=== PATIENT | female | born 1990 | race Caucasian/White ===

== ENCOUNTER 2017-08-14 23:55 | Emergency (ER) | payer OTHER ==
[2017-08-15] MEDS ORDERED: ONDANSETRON 4 MG/2 ML VIAL IVPUSH ONE (00:15)
[2017-08-15] MEDS ORDERED: HYDROmorphone HCL CARPU-JECT 1 MG/1 ML DISP.SYRIN IVPUSH ONE (00:15)
--- NOTE | 2017-08-15 00:16 | PDOC ---
History of Present Illness <Fernando Gutierrez - Last Filed: 08/15/17 00:15> - General History Source: Patient Exam Limitations: No Limitations - History of Present Illness Initial Comments: 08/15/17 00:28 Patient is a 27 year old female with no significant past medical history who presents to the ED with complaints of diffuse abdominal pain that began today while at work. Patient reports pain began early today and thought nothing of it until it became chronic throughout the day. She reports pain initially began as a localized pain on her abdomen and began radiating to her lower back as the day continued. Patient reports abdomen pain is a dull pain that she states is a 6/10 in intensity. Denies chest pain, SOB. Denies fevers, chills. Denies nausea, vomiting. Denies any other symptoms. Allergies Social history: Sister had gallbladder removed (s/p 1 year). Father had gallstones. No smoking. No alcohol. No illicit drugs. Surgical history: None PMD: None <Blu Claros - Last Filed: 08/15/17 00:29> - General Chief Complaint: Pain Stated Complaint: PAIN, ACUTE Time Seen by Provider: 08/15/17 00:14 Past History - Suicide/Smoking/Psychosocial Hx Smoking History: Never smoked Have you smoked in the past 12 months: No Information on smoking cessation initiated: No Hx Alcohol Use: No Drug/Substance Use Hx: No <Fernando Gutierrez - Last Filed: 08/15/17 00:15> <Blu Claros - Last Filed: 08/15/17 00:29> - Past Medical History Allergies/Adverse Reactions: Allergies Allergy/AdvReac Type Severity Reaction Status Date / Time No Known Allergies Allergy Verified 08/15/17 00:11 Review of Systems - Review of Systems Able to Perform ROS?: Yes Comments:: 08/15/17 00:28 GENERAL/CONSTITUTIONAL: No fever or chills. No weakness. HEAD, EYES, EARS, NOSE AND THROAT: No change in vision. No ear pain or discharge. No sore throat. CARDIOVASCULAR: No chest pain or shortness of breath. RESPIRATORY: No cough, wheezing, or hemoptysis. GASTROINTESTINAL: No nausea, vomiting, diarrhea or constipation. GENITOURINARY: No dysuria, frequency, or change in urination. MUSCULOSKELETAL: +Diffuse Abdominal pain. No joint or muscle swelling. No neck or back pain. SKIN: No rash NEUROLOGIC: No headache, vertigo, loss of consciousness, or change in strength/ sensation. ENDOCRINE: No increased thirst. No abnormal weight change. HEMATOLOGIC/LYMPHATIC: No anemia, easy bleeding, or history of blood clots. ALLERGIC/IMMUNOLOGIC: No hives or skin allergy. All Other Systems: Reviewed and Negative <Blu Claros - Last Filed: 08/15/17 00:29> *Physical Exam - Vital Signs Last Vital Signs Temp Pulse Resp BP Pulse Ox 98.7 F 86 14 128/87 100 08/15/17 00:11 08/15/17 00:11 08/15/17 00:11 08/15/17 00:11 08/15/17 00:11 <Fernando Gutierrez - Last Filed: 08/15/17 00:15> - Vital Signs Last Vital Signs Temp Pulse Resp BP Pulse Ox 98.7 F 86 14 128/87 100 08/15/17 00:11 08/15/17 00:11 08/15/17 00:11 08/15/17 00:11 08/15/17 00:11 - Physical Exam Comments: 08/15/17 00:29 GENERAL: Awake, alert, and fully oriented, in no acute distress HEAD: No signs of trauma EYES: PERRLA, EOMI, sclera anicteric, conjunctiva clear ENT: Auricles normal inspection, hearing grossly normal, nares patent, oropharynx clear without exudates. Moist mucosa NECK: Normal ROM, supple, no lymphadenopathy, JVD, or masses LUNGS: Breath sounds equal, clear to auscultation bilaterally. No wheezes, and no crackles HEART: Regular rate and rhythm, normal S1 and S2, no murmurs, rubs or gallops ABDOMEN: +RUQ pain. +RLQ pain. Soft, nontender, normoactive bowel sounds. No guarding, no rebound. No masses EXTREMITIES: Normal range of motion, no edema. No clubbing or cyanosis. No cords, erythema, or tenderness NEUROLOGICAL: Cranial nerves II through XII grossly intact. Normal speech, normal gait SKIN: Warm, Dry, normal turgor, no rashes or lesions noted. <Blu Claros - Last Filed: 08/15/17 00:29> ED Treatment Course - RADIOLOGY Radiology Studies Ordered: Category Date Time Status GALLBLADDER US [US] Stat Ultrasound 08/15/17 00:15 Ordered <Fernando Gutierrez - Last Filed: 08/15/17 00:15> *DC/Admit/Observation/Transfer - Attestations Physician Attestion: 08/15/17 00:15 I, Dr. Fernando Gutierrez, attest that this document has been prepared under my direction and personally reviewed by me in its entirety. I further attest, that it accurately reflects all work, treatment, procedures and medical decision -making performed by me. <Fernando Gutierrez - Last Filed: 08/15/17 00:15> - Attestations Scribe Attestion: 08/15/17 00:29 Documentation prepared by Blu Claros, acting as medical appliance maker for Fernando Gutierrez MD/DO. <Blu Claros - Last Filed: 08/15/17 00:29>
[2017-08-15 00:31] LABS: URINE APPEARANCE CLEAR; URINE BILIRUBIN NEGATIVE (NEGATIVE); URINE BLOOD 1+ (NEGATIVE); URINE COLOR STRAW; URINE GLUCOSE (UA) NEGATIVE (NEGATIVE); URINE KETONE NEGATIVE (NEGATIVE); URINE LEUK ESTERASE NEGATIVE (NEGATIVE); URINE NITRITE NEGATIVE (NEGATIVE); URINE PROTEIN NEGATIVE (NEGATIVE); URINE UROBILINOGEN NEGATIVE mg/dL (0.2-1.0)
[2017-08-15 00:59] VITALS: BP 128/87; PULSE 86; TEMP 98.7; BMI 25.7
[2017-08-15 00:59] LABS: BASOPHIL 0.9 % (0-2.0); EOSINOPHIL 1.2 % (0-4.5); MCHC 34.1 g/dl (32.0-36.0); MEAN CELL VOLUME 90.9 fl (80-96); NEUTROPHILS 56.7 % (42.8-82.8); PLATELET COUNT 271 K/MM3 (134-434); RDW 12.2 % (11.6-15.6); WHITE BLOOD COUNT 11.4 K/mm3 (4.0-10.0)
[2017-08-15] MEDS ORDERED: ONDANSETRON 4 MG/2 ML VIAL ONE (00:59)
[2017-08-15] MEDS ORDERED: HYDROmorphone HCL CARPU-JECT 1 MG/1 ML DISP.SYRIN ONE (00:59)
[2017-08-15 01:09] LABS: INR 0.95 (0.82-1.09); PROTHROMBIN TIME (PATIENT) 10.4 SEC (9.98-11.88)
[2017-08-15 01:16] LABS: URINE BACTERIA FEW /hpf (NONE SEEN); URINE MUCUS RARE; URINE RBC 1 /hpf (0-3); URINE WBC 1 /hpf (3-5)
[2017-08-15 01:21] LABS: ALBUMIN 3.9 g/dl (3.4-5.0); ALK PHOS 88 U/L (45-117); ANION GAP 10 (8-16); BILIRUBIN,TOTAL 0.2 mg/dL (0.2-1.0); CALCIUM 9.6 mg/dL (8.5-10.1); CO2 27 mmol/L (21-32); CREATININE 0.7 mg/dL (0.55-1.02); GLUCOSE,RANDOM 89 mg/dL (74-106); SGOT/AST 15 U/L (15-37); SGPT/ALT 26 U/L (12-78); TOT PROT 8.3 g/dl (6.4-8.2)
--- NOTE | 2017-08-15 04:59 | PDOC ---
*Physical Exam - Vital Signs Last Vital Signs Temp Pulse Resp BP Pulse Ox 98.7 F 86 14 128/87 100 08/15/17 00:11 08/15/17 00:11 08/15/17 00:11 08/15/17 00:11 08/15/17 00:11 ED Treatment Course - LABORATORY CBC & Chemistry Diagram: 08/15/17 00:46 08/15/17 00:46 - ADDITIONAL ORDERS Additional order review: Laboratory Results 08/15/17 08/15/17 08/15/17 00:46 00:46 00:46 PT with INR 10.40 INR 0.95 Sodium 139 Potassium 4.4 Chloride 102 Carbon Dioxide 27 Anion Gap 10 BUN 15 Creatinine 0.7 Creat Clearance w eGFR > 60 Random Glucose 89 Calcium 9.6 Total Bilirubin 0.2 AST 15 ALT 26 Alkaline Phosphatase 88 Total Protein 8.3 H Albumin 3.9 Lipase 171 Serum , Qual Urine Color Urine Appearance Urine pH Urine Protein Urine Glucose (UA) Urine Ketones Urine Blood Urine Nitrite Urine Bilirubin Urine Urobilinogen Urine RBC Urine WBC Ur Epithelial Cells Urine Bacteria Urine Mucus Blood Type A POSITIVE Antibody Screen Negative 08/15/17 00:21 PT with INR INR Sodium Potassium Chloride Carbon Dioxide Anion Gap BUN Creatinine Creat Clearance w eGFR Random Glucose Calcium Total Bilirubin AST ALT Alkaline Phosphatase Total Protein Albumin Lipase Serum , Qual Negative Urine Color Straw Urine Appearance Clear Urine pH 6.0 Urine Protein Negative Urine Glucose (UA) Negative Urine Ketones Negative Urine Blood 1+ H Urine Nitrite Negative Urine Bilirubin Negative Urine Urobilinogen Negative Urine RBC 1 Urine WBC 1 Ur Epithelial Cells Rare Urine Bacteria Few Urine Mucus Rare Blood Type Antibody Screen 08/15/17 00:46 RBC 4.83 MCV 90.9 MCHC 34.1 RDW 12.2 MPV 9.0 Neutrophils % 56.7 Lymphocytes % 33.2 Monocytes % 8.0 Eosinophils % 1.2 Basophils % 0.9 - Medications Given in the ED: ED Medications Discontinued Medications Generic Name Dose Route Start Last Admin Trade Name Freq PRN Reason Stop Dose Admin Hydromorphone HCl 1 mg 08/15/17 00:15 08/15/17 01:06 Dilaudid Injection - IVPUSH 08/15/17 00:16 1 mg ONCE ONE Administration Ondansetron HCl 4 mg 08/15/17 00:15 08/15/17 01:06 Zofran Injection IVPUSH 08/15/17 00:16 4 mg ONCE ONE Administration *DC/Admit/Observation/Transfer Diagnosis at time of Disposition: Abdominal pain - Discharge Dispostion Disposition: HOME Condition at time of disposition: Stable Admit: No - Prescriptions Prescriptions: Dicyclomine HCl [Bentyl] 20 mg PO Q6H #20 tablet - Referrals Referrals: Lucy Green MD [Primary Care Provider] - Leo Ames MD [Staff Physician] - - Patient Instructions Printed Discharge Instructions: DI for Abdominal Pain-Adult - Post Discharge Activity Forms/Work/School Notes: Back to Work
[2017-08-15] MEDS ORDERED: DICYCLOMINE HCL 10 MG CAPSULE PO ONE (05:02)
[2017-08-15] MEDS ORDERED: DICYCLOMINE HCL 10 MG CAPSULE ONE (05:06)
== END 2017-08-15 05:14 | disposition home or self-care (01) ==
LOC: JER 23:55
PROC: 3E033GC Introduction of Other Therapeutic Substance into Peripheral Vein, Percutaneous Approach (ICD-10-PCS; principal; 2017-08-14)
PROC: 3E033NZ Introduction of Analgesics, Hypnotics, Sedatives into Peripheral Vein, Percutaneous Approach (ICD-10-PCS; 2017-08-14)
DX: R10.84 Generalized abdominal pain (principal)
CPT/HCPCS: 36415; 74177-TC; 76705-TC; 80053; 81003; 81015; 83690; 84703; 85025; 85610; 86850; 86900; 86901; 99283-25